=== PATIENT | female | born 1985 | race American Indian/Alaskan Native ===

== ENCOUNTER 2017-08-06 09:43 | Outpatient (CLI) | payer BC ==
--- NOTE | 2017-08-06 12:00 | XRay Report ---
RIGHT TIBIA/FIBULA: History: Right leg pain AP and lateral views of the right tibia/fibula demonstrate normal mineralization and contours for this patient's age. No destructive changes are noted and the adjacent soft tissues are normal. IMPRESSION: Unremarkable right tibia/fibula.
--- NOTE | 2017-08-06 12:01 | XRay Report ---
RIGHT HIP, 2 views: History: Right hip pain. The bony architecture is intact without evidence of fracture or dislocation. No significant soft tissue abnormality is seen. IMPRESSION: Normal right hip.
--- NOTE | 2017-08-06 12:01 | XRay Report ---
RIGHT KNEE, 2 views: History: Right knee pain. The bony architecture is intact without evidence of fracture or dislocation. No significant soft tissue abnormality is seen. IMPRESSION: Normal right knee.
== END 2017-08-06 09:44 | disposition home or self-care (01) ==
LOC: XRAY 09:43
PROVIDERS: ATTEND Nurse Practitioner
DX: M25.561 Pain in right knee (principal); M25.551 Pain in right hip; M79.604 Pain in right leg

== ENCOUNTER 2017-11-02 07:01 | Outpatient (CLI) | payer BC ==
[2017-11-02 07:36] LABS: Eosinophils # (Auto) 0.1 K/mm3 (0.0-0.4); Eosinophils % (Auto) 1.7 % (0.0-4.3); Hematocrit 39.1 % (30.3-42.9); Lymphocytes # (Auto) 1.8 K/mm3 (1.2-5.4); Lymphocytes % (Auto) 39.5 % (13.4-35.0); Mean Corpuscular HGB Conc 33 % (30-34); Mean Corpuscular Hemoglobin 31 pg (28-32); Mean Corpuscular Volume 93 fl (79-97); Monocytes # (Auto) 0.4 K/mm3 (0.0-0.8); Monocytes % (Auto) 7.9 % (0.0-7.3); Platelet Count 216 K/mm3 (140-440); Red Cell Distribution Width 13.6 % (13.2-15.2)
[2017-11-02 07:58] LABS: Alanine Aminotransferase 6 units/L (7-56); Albumin 3.7 g/dL (3.9-5); BUN/Creatinine Ratio 18; Blood Urea Nitrogen 11 mg/dL (7-17); Chol/HDL Ratio 2.62 %; HDL Cholesterol 72 mg/dL (40-59); Hemolysis Index 10; LDL Cholesterol,Direct 116 mg/dL (50-130)
== END 2017-11-02 07:02 | disposition home or self-care (01) ==
LOC: LAB 07:01
DX: Z00.01 Encounter for general adult medical examination with abnormal findings (principal); R79.89 Other specified abnormal findings of blood chemistry; Z88.8 Allergy status to other drugs, medicaments and biological substances
CPT/HCPCS: 36415; 80053; 80061; 84443; 85025

== ENCOUNTER 2017-11-16 09:51 | Outpatient (CLI) | payer BC ==
--- NOTE | 2017-11-16 13:45 | Ultrasound Report ---
ULTRASOUND PELVIC COMPLETE ULTRASOUND TRANSVAGINAL HISTORY: Followup ovarian cyst, fibroid. COMPARISON: None at this facility. TECHNIQUE: Transabdominal and transvaginal ultrasound with color doppler interrogation. FINDINGS: Uterus: The uterus is anteverted. The uterus measures 8.3 x 3.5 x 4.9 cm. A 1.6 x 1.3 cm intramural fibroid is identified in the posterior uterine fundus. No additional fibroids are appreciated. Normal cervix. Endometrium: 6.7 mm. No abnormality. Right ovary: 1.9 x 1.1 x 1.4 cm. No focal abnormality. Left ovary: 2.8 x 2.8 x 2.5 cm. A 2.0 cm complex cyst containing fine internal septa are identified within the left ovary. This has the appearance of a resolving hemorrhagic cyst in my opinion. No pelvic fluid or mass is identified. Normal color doppler interrogation. IMPRESSION: 1.6 cm intramural fibroid as described. 2.0 cm complex left ovarian cyst as described above.
== END 2017-11-16 09:52 | disposition home or self-care (01) ==
LOC: US 09:51
PROVIDERS: ATTEND Obstetrics & Gynecology
DX: D25.9 Leiomyoma of uterus, unspecified (principal); N83.202 Unspecified ovarian cyst, left side; Z91.048 Other nonmedicinal substance allergy status; Z88.6 Allergy status to analgesic agent; Z91.013 Allergy to seafood
CPT/HCPCS: 76830; 76856

== ENCOUNTER 2017-11-30 09:41 | Outpatient (CLI) | payer BC ==
[2017-11-30 10:31] LABS: INR 1.12 (0.87-1.13)
[2017-11-30 10:33] LABS: Partial Thromboplastin Time 23.6 Sec. (24.2-36.6)
== END 2017-11-30 09:42 | disposition home or self-care (01) ==
LOC: LAB 09:41
PROVIDERS: ATTEND Obstetrics & Gynecology
DX: R79.9 Abnormal finding of blood chemistry, unspecified (principal); Z91.013 Allergy to seafood; Z91.048 Other nonmedicinal substance allergy status; Z88.6 Allergy status to analgesic agent
CPT/HCPCS: 36415; 85610; 85730

== ENCOUNTER 2017-12-07 07:30 | Outpatient (CLI) | payer BC ==
--- NOTE | 2017-12-07 10:04 | Cat Scan Report ---
CTA CHEST: HISTORY: Elevated the partial thromboplastin time, family history of bleeding disorder. COMPARISON: none. TECHNIQUE: Helical CT in 1.25mm intervals following IV contrast. Pulmonary embolus protocol. Sagittal and coronal reformatted images. Rotational MIP images. FINDINGS: Contrast bolus is slightly limited in the distal small pulmonary arteries. No pulmonary embolus is identified. Thyroid gland: Normal. Tracheobronchial tree: Normal. Esophagus: Normal. Heart: Normal. Pericardium: Normal. Mediastinum: Normal. Lung Vazquez: Normal. Pleural Spaces: Normal. Musculoskeletal: Normal. IMPRESSION: No evidence for pulmonary embolus. Unremarkable CT chest with contrast.
== END 2017-12-07 07:31 | disposition home or self-care (01) ==
LOC: CT 07:30
PROVIDERS: ATTEND Family Medicine
DX: R79.1 Abnormal coagulation profile (principal); Z83.2 Family history of diseases of the blood and blood-forming organs and certain disorders involving the immune mechanism
CPT/HCPCS: 71275; Q9967

== ENCOUNTER 2017-12-10 07:28 | Outpatient (CLI) | payer BC ==
[2017-12-10 08:13] LABS: INR 0.94 (0.87-1.13)
[2017-12-10 08:23] LABS: Alanine Aminotransferase 8 units/L (7-56)
[2017-12-14 19:41] LABS: ANA Screen, IFA Positive (Negative)
== END 2017-12-10 07:29 | disposition home or self-care (01) ==
LOC: LAB 07:28
PROVIDERS: ATTEND Internal Medicine Hematology & Oncology
DX: E66.3 Overweight (principal); N80.9 Endometriosis, unspecified; R79.1 Abnormal coagulation profile
CPT/HCPCS: 36415; 84450; 84460; 85610; 86038; 86225

== ENCOUNTER 2017-12-21 07:33 | Outpatient (CLI) | payer BC ==
[2017-12-21 08:05] LABS: Hematocrit 39.8 % (30.3-42.9); Hemoglobin 13.2 gm/dl (10.1-14.3); Mean Corpuscular HGB Conc 33 % (30-34); Mean Corpuscular Hemoglobin 31 pg (28-32); Mean Corpuscular Volume 92 fl (79-97); Platelet Count 232 K/mm3 (140-440); Red Blood Count 4.31 M/mm3 (3.65-5.03); Red Cell Distribution Width 13.6 % (13.2-15.2)
[2017-12-21 08:27] LABS: Erythrocyte Sedimentation Rate 13 mm/Hr (0-20)
[2017-12-24 12:20] LABS: ANA Screen, IFA Positive (Negative)
== END 2017-12-21 07:34 | disposition home or self-care (01) ==
LOC: LAB 07:33
PROVIDERS: ATTEND Internal Medicine Rheumatology
DX: R76.8 Other specified abnormal immunological findings in serum (principal)
CPT/HCPCS: 36415; 85027; 85652; 86038; 86235

== ENCOUNTER 2018-01-05 08:26 | Outpatient (CLI) | payer BC ==
--- NOTE | 2018-01-05 10:05 | Ultrasound Report ---
ULTRASOUND PELVIC COMPLETE ULTRASOUND TRANSVAGINAL HISTORY: Pelvic pain. COMPARISON: 11/16/17. TECHNIQUE: Transabdominal and transvaginal ultrasound with color doppler interrogation. FINDINGS: Uterus: The uterus is anteverted. The uterus measures 9.1 x 4.4 x 5.2 cm. The intramural fibroid in the posterior wall is unchanged measuring 1.6 x 1.6 x 1.5 cm. Endometrium: Normal. 6.2 mm in thickness. Right ovary: 2.5 x 1.1 x 2.5 cm. No focal abnormality. Left ovary: 2.9 x 1.9 x 1.9 cm. The assumed hemorrhagic cyst in the left ovary which measured up to 2.0 cm on the previous exam has nearly resolved and measures approximately 1 cm on today's exam. No new left ovarian abnormality. No pelvic fluid or mass is identified. Normal color doppler interrogation. IMPRESSION: Near complete resolution of the assumed hemorrhagic cyst in the left ovary since 11/16/17. See above. Small intramural uterine fibroid, unchanged.
== END 2018-01-05 08:27 | disposition home or self-care (01) ==
LOC: US 08:26
PROVIDERS: ATTEND Obstetrics & Gynecology
DX: D25.1 Intramural leiomyoma of uterus (principal)
CPT/HCPCS: 76830; 76856